=== PATIENT | male | born 1995 | race Two or more races ===

== ENCOUNTER 2021-07-06 23:22 | Emergency (ER) | payer OTHER ==
[~2021-07-06] VITALS: Ht 180.3 cm; Wt 95.3 kg
[2021-07-07] MEDS ORDERED: PEPCID20 MG PO (05:12)
[2021-07-07] MEDS ORDERED: INTESTINEX680 M2 PO (05:12)
[2021-07-07] MEDS ORDERED: LEVSIN0.125 MG PO (05:12)
== END 2021-07-07 05:23 | disposition home or self-care (01) ==
LOC: ER 23:22
DX: K52.89 Other specified noninfective gastroenteritis and colitis (principal); A05.9 Bacterial foodborne intoxication, unspecified